=== PATIENT | female | born 1950 ===

== ENCOUNTER 2021-09-18 17:10 | Emergency (ER) | payer MEDICARE, MEDICAID, SELFPAY ==
[2021-09-18 17:23] VITALS: BP 153/89; PULSE 100; RESP 20; TEMP 36.3; O2SAT 97
--- NOTE | 2021-09-18 19:17 | PC.NURSE ---
Pt to desk reporting that she wants to leave due to long wait time. Pt encouraged to return if symptoms worsen. Pt ambulatory with steady gait in no obvious distress.
== END 2021-09-18 19:17 | disposition left against medical advice (07) ==
LOC: ANHED 19:28
PROVIDERS: PCP Internal Medicine Infectious Disease
DX: J02.9 Acute pharyngitis, unspecified (principal)
CPT/HCPCS: 99199